=== PATIENT | female | born 1990 | race Caucasian/White ===

== ENCOUNTER 2018-05-18 12:27 | Observation (INO) | payer OTHER ==
--- NOTE | 2018-05-18 14:20 | EDPHY ---
General Time Seen by Provider: 05/18/18 14:00 Narrative: CLINICAL IMPRESSION: Flank pain ASSESSMENT/PLAN: Patient is a 27-year-old female with significant history of IgA and C1q nephropathy, antiphospholipid antibody syndrome on Coumadin, Fadia's and hypertension who presents to the emergency department with persistent and escalating bilateral flank pain, abdominal distention, nausea and bilateral upper extremity edema. Patient is afebrile, she is uncomfortable appearing however not toxic-appearing. Her abdomen was distended, no appreciable tenderness to palpation or peritoneal signs. Bilateral CVA tenderness. Patient was seen and evaluated at [facility] Emergency Department earlier this morning, pertinent labs included a normal white blood cell count, creatinine of 1.4, BUN of 24, EGFR of 52 as well as a proteinuria. Renal ultrasound performed 2 days prior with no evidence of infarction, increased echogenicity consistent with chronic renal disease. Patient remotely followed by [facility], recently in [place] and is in the process of reestablishing care. I did speak with Dr. Garza with [facility], he recommends CT with contrast- concern for renal vein thrombosis, also recommends quantifying urine protein to rule out etiologies to include and nephrotic syndrome. CT abdomen and pelvis was obtained in the emergency department which revealed no evidence of nephrolithiasis, hydronephrosis, renal vascular thrombosis or other acute process. It is unclear the exact etiology of her bilateral flank pain at this time. Patient was given IV fluids, antiemetic and her pain was controlled. The patient will be admitted to the hospitalist service for further evaluation and management, I spoke directly with Dr. Blount who will be the admitting physician. In reviewing patient's records, she was seen and evaluated on the in the emergency department and again on the at [facility]. CBC revealed no evidence of leukocytosis at her visit earlier today, creatinine was 1.4, BUN 20 for an estimated GFR 52. This was improved from creatinine of 1.52 days prior. INR is therapeutic at 2.3. I called patient's primary care provider and discuss this case with her. She was seen by her on Friday with concerns for nephrotic syndrome however with improving creatinine and decreased protein urea her primary care did not start any steroid therapy. Patient presents complaining of persistent and uncontrolled bilateral flank pain as well as underlying nausea. Symptoms are the same and unchanged. Patient was diagnosed oxycodone and Lyrica from her visit earlier this morning. Patient reportedly spoke to her primary care provider who referred her to go to another emergency department however when speaking to her PCP she did not recommend this. I spoke with Dr. Russell who was patient's armature winder repairer over 4 years ago, he is familiar with this patient however has not seen her recently. Biggest concern is it renal vein thrombosis, recommended imaging at this time. Also recommends quantifying the urine protein to help differentiate possible nephrotic syndrome. DIFFERENTIAL DX: Nephrotic syndrome, renal colic, pyelonephritis, UTI, renal vein thrombosis ED COURSE: 14:05: Discussed with Dr. Mera CHIEF COMPLAINT: Bilateral flank pain HPI: Patient is a 27-year-old female with a significant history of IgA in C1q nephropathy, antiphospholipid antibody syndrome on Coumadin, Fadia's and hypertension who presents to the emergency department with bilateral flank pain , abdominal distention, nausea and bilateral upper extremity edema. Patient reports last week she started to experience some bilateral flank pain, right greater than left. She was seen and evaluated by her primary care provider on Friday where a UA was obtained and revealed hematuria and protein urea. Patient was seen and evaluated formally in the emergency department on Friday with a reassuring workup including normal ultrasound, creatinine of 1.5, no other acute findings. Patient seen and evaluated again for escalating pain this morning at [facility] were laboratory studies were obtained, another reassuring workup. Patient called her PCP and reportedly was told to go to another emergency department. Patient denies any fevers or chills, she has had low- grade nausea with no vomiting. She denies any chest pain or abdominal pain. She denies any urinary symptoms to include dysuria, hematuria or frequency. Bowel movements have been regular, no melena or hematochezia. Patient denies chronic pain with underlying nephropathy. PMH: IgA/C1q nephropathy, antiphospholipid antibody syndrome, Fadia's, hypertension Pertinent Past Surgical History: Denies Family History: Noncontributory Social History: Denies REVIEW OF SYSTEMS: All other systems negative Constitutional: Decreased appetite. No fever, no chills. Eyes: No discharge, vision change ENT: No sore throat, congestion, ear pain. Cardiovascular: No chest pain, no palpitations. Respiratory: No cough. Gastrointestinal: Abdominal distention, nausea. No abdominal pain or diarrhea. Genitourinary: Decreased urine output. No hematuria, dysuria or pelvic pain. Musculoskeletal: Symmetric hand swelling. No back pain, joint pain, myalgias. Skin: No rashes, color change. Neurological: No headache, dizziness, weakness. PHYSICAL EXAM: General Appearance: Patient is a well-developed female, uncomfortable appearing however not toxic-appearing. HENT: Normocephalic, atraumatic. Bilateral external ears are normal. Bilateral tympanic membranes are normal with pearly [place] reflex. Nares are clear, mucosa is pink. Oropharynx is clear however mildly dry mucosa, uvula is midline. There is no tonsillar enlargement or exudate. The dentition is normal. Eyes: PERRLA, no acute vision change, nystagmus, swelling, discharge, pain or photosensitivity. Conjunctiva pink, no pallor or injection Neck: Supple, nontender, no lymphadenopathy, no midline pain, FROM, no meningismus. Respiratory: There are no retractions, lungs are clear to auscultation. Cardiac: Regular rate and rhythm, no murmurs or gallops. Gastrointestinal: Abdomen is soft, nontender, bowel sounds normal, no masses/ hernia, no rigidity, guarding or focal peritoneal findings. Bilateral CVA tenderness on examination. Neurological: Alert and oriented x 3, CN 2-12 grossly intact, normal gait no ataxia, DTR's intact, normal sensation and strength Skin: Warm, dry, no rashes, no nodules on palpation. Musculoskeletal: Mild symmetric hand swelling, nontender. No lower extremity edema. Extremities are symmetrical, full range of motion, no tenderness, deformity or erythema. Psychiatric: Patient is oriented X 3, there is no agitation. MEDICAL DECISION MAKING: Patient was seen independently. Secondary supervising physician at time of evaluation was Dr. Mera. Diagnosis: Bilateral flank pain. New, requires workup Summary: See Assessment and Plan for summary of ED visit Clinical lab tests: ordered / reviewed. Independent visualization of images, tracing, or specimens: Yes. Decision to obtain medical records or history from someone other than the patient: Yes, PCP and armature winder repairer Review / Summarize previous medical records: Yes Discussed patient with another provider: Yes- Dr. Nieto, Dr. Garza, Dr. Mera and Dr. Blount Patient Progress: Stable, admit. - Diagnostics Imaging Results: Imaging Impressions Abdomen CT 05/18/18 15:15 Impression: 1. Normal enhancement to both kidneys without evidence for hydronephrosis or nephrolithiasis. 2. Chronic bilateral spondylolysis at L5 with mild grade 1 anterior spondylolisthesis of L5 on S1. 3. Moderate constipation. Results called and discussed with Treasure Farrell PA-C on 05/18/2018, 17:01. - History Smoking Status: Never smoked - Objective Vital Signs: Initial Vital Signs Temperature (C) 36.8 C 05/18/18 12:36 Heart Rate 81 05/18/18 12:36 Respiratory Rate 18 05/18/18 12:36 Blood Pressure 154/104 H 05/18/18 12:36 O2 Sat (%) 100 05/18/18 12:36 O2 Delivery Mode Room Air Allergies/Adverse Reactions: droperidol [Droperidol] Allergy (Verified 05/18/18 16:00) SHORTNESS OF BREATH Home Medications: Medication Instructions Recorded Furosemide [Furosemide] 20 mg PO DAILY 05/18/18 HYDROcodone/APAP 10/325 [[place] 1 tab PO Q6 PRN 05/18/18 10/325 (*)] Losartan Potassium [Cozaar 25 mg 25 mg PO DAILY 05/18/18 (*)] Ondansetron HCl [Ondansetron HCl] 4 mg PO Q6H PRN 05/18/18 Warfarin Sodium [Coumadin] 10 mg PO DAILY 05/18/18 amLODIPine BESYLATE [Amlodipine 5 mg PO DAILY 05/18/18 Besylate] Laboratory Results: 05/18/18 05/18/18 12:40 12:40 Urine Color YELLOW Urine Appearance CLEAR Urine pH 6.0 (5.0-7.5) Ur Specific [place] 1.014 (1.002-1.030) Urine Protein 1+ H (NEGATIVE) Urine Ketones NEGATIVE (NEGATIVE) Urine Blood NEGATIVE (NEGATIVE) Urine Nitrate NEGATIVE (NEGATIVE) Urine Bilirubin NEGATIVE (NEGATIVE) Urine Urobilinogen NEGATIVE EU EU (0.2-1.0) Ur Leukocyte Esterase NEGATIVE (NEGATIVE) Urine RBC 1-3 /hpf /hpf (0-3) Urine WBC 1-3 /hpf /hpf (0-3) Ur Epithelial Cells 1+ /lpf /lpf (NONE-1+) Urine Bacteria TRACE /hpf H /hpf (NONE SEEN) Urine Glucose NEGATIVE (NEGATIVE) Urine Test NEGATIVE Medications Given: Hydromorphone HCl (Dilaudid) 0.2 - 0.4 mg IVP Q4HRS PRN PRN Reason: Pain, Severe Unable to Take PO Stop: 05/28/18 15:52 Last Admin: 05/18/18 16:28 Dose: 0.4 mg Discontinued Medications Hydromorphone HCl (Dilaudid) 0.5 mg IVP EDNOW ONE Stop: 05/18/18 15:05 Last Admin: 05/18/18 15:32 Dose: 0.5 mg Ondansetron HCl (Zofran) 4 mg IVP Q4 PRN PRN Reason: Nausea/Vomiting, Can't Take PO Stop: 11/14/18 14:41 Last Admin: 05/18/18 15:32 Dose: 4 mg Departure - Departure Disposition: [facility] Acute Condition: Fair
[2018-05-18] MEDS ORDERED: HYDROmorphONE/DILAUDID 2 MG/ML INJ IVP ONE ×2 (14:42→15:04)
[2018-05-18] MEDS ORDERED: ONDANSETRON 4 MG/2 ML VIAL IVP PRN (14:42)
[2018-05-18] MEDS ORDERED: HYDROmorphONE/DILAUDID 1 MG/ML INJ ONE (15:29)
[2018-05-18] MEDS ORDERED: ACETAMINOPHEN 325 MG TAB PO PRN (15:53)
[2018-05-18] MEDS ORDERED: HYDROmorphONE/DILAUDID 1 MG/ML INJ IVP PRN (15:53)
[2018-05-18] MEDS ORDERED: IOPAMIDOL (ISOVUE 370) 100 ML BTL IV ONE (15:56)
[2018-05-18] MEDS ORDERED: HYDROCODONE/APAP 10/325 TAB PO PRN (16:01)
--- NOTE | 2018-05-18 16:34 | GHP ---
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 She presents with several days of flank pain. 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 She presents to this hospital today after b eing seen in the ER on the and on the at Urgent Care. She has bilateral flank pain. This feels somewhat similar to her previous episodes of kidney pain. She has never had abdominal surgery. No history of nephrolithiasis. She has had 2 previous pregnancies. She has not had fever, chills, although she has felt kind of uncomfortable. She has been eating all right. She continues to take her Lasix. She has noticed a decreased urine output. She has been seen recently and her creatinine is in the 1.4 to 1.5 range. Her INR is therapeutic at 2.3 this morning. She has had no abdominal surgery. There has been no physical activity that would have led to a muscle strain in that area. REVIEW OF SYSTEMS: Complete 10-point review of systems conducted negative except as noted in the HPI . PAST MEDICAL HISTORY: 1. IgA nephropathy. 2. C1 Q nephropathy. 3. Antiphospholipid antibody syndrome. 4. Hypertension. ALLERGIES: Droperidol. HOME MEDS: Amlodipine, furosemide, [place], losartan, warfarin, ondansetron. SOCIAL HISTORY: She works as a nurse. She has 2 children. She lives in [place]. She is a nonsmok er. Social alcohol. FAMILY HISTORY: Reviewed and unremarkable. PHYSICAL EXAMINATION: VITAL SIGNS: Presenting vitals blood pressure 154/103, now 131/113, pulse 79, breathing 16 times a minute, 98% on room air. GENERAL: Slightly uncomfortable but otherwise no acute distress. HEENT: Sclerae anicteric. Oropharynx clear. Mucous membranes moist. NECK: Supple. No l ymphadenopathy or JVD. LUNGS: Clear to auscultation bilaterally. HEART: S1, S2. There is some flank pain. There is no rebound or guarding. LOWER EXTREMITIES: Without edema. Calves nontender. SKIN: Wi thout rash. NEUROLOGIC: Exam is nonfocal. LABS: Today show a UA with 1+ protein, otherwise negative, trace bacteria. Previous labs were a cre atinine of 1.52 today. She had a D-dimer about 10 days ago that was negative here. About 10 days ag o her white count was 8.8, hematocrit 43, platelets are 247. These labs were before her symptoms sta rted on the , which was 3 days ago. Sodium 135, potassium 3.8, chloride 104, bicarb 26, BUN 30, creatinine 1.6, glucose 88. I discussed the case with FRACISCO Church in the emergency department. ASSESSMENT/PLAN: A 27-year-old female with complex renal history and bilateral flank plain. 1. Flank pain. This is certainly concerning for possible a nephrolith or renal artery thrombosis, a lthough therapeutic INR and recently negative D-dimer makes this less likely. She has had no blood i n her urine. We will do a CT with and without contrast to evaluate for nephrolithiasis and stones. 2. She had a negative test several days ago. I will repeat that. We will follow up on results. 3. History of nephrotic syndrome. Her news internship is interested in possible nephrotic syndrome, ca n put her in for 24 hour urine collection, although she is admitted to observation as I suspect and g oing to be difficult to accomplish. 4. Hypertension. The patient has hypertension, stable. Continue amlodipine and losartan. 5. Volume status. The patient is probably slightly volume deplete. Will follow. I will give her 2 L IV fluids at a gentle rate. 6. Pain. We will continue her pain pills, give her some IV Dilaudid. She is not drug-seeking. 7. Prophylaxis. Therapeutic INR. Follow. DISPOSITION: Observation status for now. /[id number]/MODL
[2018-05-18] MEDS: PROMETHAZINE HCL 25 MG/ML INJ IVP PRN (18:00)
[2018-05-18] MEDS: NS 1,000 ML IV SCH (18:05)
[2018-05-18] MEDS: HYDROmorphONE/DILAUDID 1 MG/ML INJ IVP PRN ×2 (20:18→22:47)
[2018-05-18] MEDS: ONDANSETRON 4 MG/2 ML VIAL IVP PRN (22:47)
[2018-05-19] MEDS: HYDROCODONE/APAP 10/325 TAB PO PRN ×4 (00:08→19:54)
[2018-05-19] MEDS: NS 1,000 ML IV SCH (00:08)
[2018-05-19] MEDS: HYDROmorphONE/DILAUDID 1 MG/ML INJ IVP PRN ×7 (01:06→21:32)
[2018-05-19] MEDS: PROMETHAZINE HCL 25 MG/ML INJ IVP PRN ×2 (03:20→12:46)
[2018-05-19 05:25] LABS: INR 2.76 (0.83-1.16); PROTIME(PATIENT) 29.1 SEC (12.0-15.0)
[2018-05-19] MEDS: ONDANSETRON 4 MG/2 ML VIAL IVP PRN ×2 (06:37→10:49)
[2018-05-19] MEDS: LOSARTAN POTASSIUM 25 MG TAB PO SCH (08:57)
[2018-05-19] MEDS: amLODIPine BESYLATE 5 MG TAB PO SCH (08:57)
[2018-05-19] MEDS ORDERED: POLYETHYLENE GLYCOL 3350 17 GM PKT PO PRN (09:22)
[2018-05-19] MEDS ORDERED: BISACODYL 10 MG SUPP PR PRN (09:22)
[2018-05-19] MEDS ORDERED: LACTULOSE 20 GM/30 ML UDCUP PO PRN (09:22)
[2018-05-19] MEDS ORDERED: MAGNESIUM HYDROXIDE 30 ML UDCUP PO PRN (09:22)
--- NOTE | 2018-05-19 09:41 | HOSPPROG ---
Hospitalist Progress Note Assessment/Plan: B/L flank pain - CT neg for thrombotic dz or hydronephrosis, constipation noted (pt denies this) -pain control CKD with H/O nephrotic syndrome / IgA nephropathy - Cr near baseline ~1.3. Note 1+ pro on UA -nephrology consult, discussed with Dr. Mcbride, who recommends starting with spot pro:Cr ratio prior to 24 urine APLA syndrome - INR therapeutic on coumadin, pt notes h/o clotting despite INR 2 -3 UE swelling - check b/l UE u/s to r/o DVT given above Hypertension - adequate control -cont norvasc, losartan Constipation - seen on CT, pt denies hx -bowel regimen Full code Dispo - heck to inpt for further evaluation of pain and swelling Subjective: Pt reports 6/10 b/l flank pain and b/l UE and facial swelling and puffiness. Reports regular soft formed stool, denies constipation hx. No fevers /chills. Poor uop per her report. Objective: Vital Signs Temp Pulse Resp BP Pulse Ox 36.8 C 77 16 111/85 H 100 05/19/18 08:12 05/19/18 08:12 05/19/18 08:12 05/19/18 08:57 05/19/18 08:12 Laboratory Results 05/19/18 04:30 05/18/18 05/19/18 05/20/18 05:59 05:59 05:59 Intake Total 400 1500 Balance 400 1500 PT 29.1 SEC (12.0-15.0) H 05/19/18 04:30 INR 2.76 (0.83-1.16) H 05/19/18 04:30 - Physical Exam Constitutional: no apparent distress Eyes: PERRL Ears, Nose, Mouth, Throat: moist mucous membranes Cardiovascular: regular rate and rhythym Respiratory: no respiratory distress, clear to auscultation, reduced air movement Gastrointestinal: other (soft, minimal distention, nontender, +BS) Skin: warm Musculoskeletal: full muscle strength, other (RUE > LUE swelling noted) Neurologic: AAOx3 Psychiatric: interacting appropriately ICD10 Worksheet Patient Problems: Problems Problem Status Onset Flank pain Acute Pain, flank, bilateral Acute - ICD10 Problem Qualifiers (1) Flank pain (2) Pain, flank, bilateral
--- NOTE | 2018-05-19 12:22 | PDCONSULT ---
Drug Abuse Program Coordinator Note: Renal Consult Note CC: Flank pain HPI: The patient is a 27 y/o F with a known h/o IgA nephropathy, C1q nephropathy , and antiphoslolipid Ab syndrome on anticoagulation with a previous renal artery thrombosis who presented to the ED c/o flank pain. She is followed by Dr. Stout of [facility] and has a baseline Cr of 1.4-1.5 as well as a h/o proteinuria. She states, that she has been treated for this issue since she was 15, however did not develop a clot until last December. She states that her pain began on Friday while "just sitting around" and she cannot think of any relieving factors, however it is exacerbated by movement. She was started on lasix just this past year to help with her elevated BP's and she was started on a CCB for her Raynaud's syndrome. She admits to having severe low back pain in the past and had a previously ruptured disc that was removed >1 year ago. 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 She is tearful, b/ c she feels that her pain is similar to her kidney pain in the past. 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 Meds: List reviewed. Allergies: Droperidol. ROS: Negative 10 point review except as per HPI. Objective: Temp Pulse Resp BP Pulse Ox 36.6 C 65 16 149/114 H 97 05/19/18 11:05 05/19/18 11:05 05/19/18 11:05 05/19/18 11:05 05/19/18 11:05 Physical Exam: GEN: Alert and oriented, mild distress HEENT: MMM, EOMI Neck: No thyromegaly, supple CV: RRR, no murmurs RESP: CTA b/l, no wheezing or rales ABD: Soft, NT, ND, increased paraspinal muscle tenderness on L side with tenderness to palpation L5 transverse process EXT: Trace edema SKIN: No rashes or lesions NEURO: Non-focal Labs: PT 29.1 SEC (12.0-15.0) H 05/19/18 04:30 INR 2.76 (0.83-1.16) H 05/19/18 04:30 Sodium 135 mEq/L (135-145) 05/19/18 04:30 Potassium 3.9 mEq/L (3.5-5.2) 05/19/18 04:30 Chloride 109 mEq/L (97-110) 05/19/18 04:30 Carbon Dioxide 25 mEq/l (22-31) 05/19/18 04:30 Anion Gap 1 mEq/L (6-14) L 05/19/18 04:30 BUN 20 mg/dL (7-23) 05/19/18 04:30 Creatinine 1.4 mg/dL (0.6-1.0) H 05/19/18 04:30 Estimated GFR 45 05/19/18 04:30 Glucose 99 mg/dL (70-100) 05/19/18 04:30 Calcium 7.8 mg/dL (8.5-10.4) L 05/19/18 04:30 Urine Color YELLOW 05/18/18 12:40 Urine Appearance CLEAR 05/18/18 12:40 Urine pH 6.0 (5.0-7.5) 05/18/18 12:40 Ur Specific [place] 1.014 (1.002-1.030) 05/18/18 12:40 Urine Protein 1+ (NEGATIVE) H 05/18/18 12:40 Urine Ketones NEGATIVE (NEGATIVE) 05/18/18 12:40 Urine Blood NEGATIVE (NEGATIVE) 05/18/18 12:40 Urine Nitrate NEGATIVE (NEGATIVE) 05/18/18 12:40 Urine Bilirubin NEGATIVE (NEGATIVE) 05/18/18 12:40 Urine Urobilinogen NEGATIVE EU (0.2-1.0) 05/18/18 12:40 Ur Leukocyte Esterase NEGATIVE (NEGATIVE) 05/18/18 12:40 Urine RBC 1-3 /hpf (0-3) 05/18/18 12:40 Urine WBC 1-3 /hpf (0-3) 05/18/18 12:40 Ur Epithelial Cells 1+ /lpf (NONE-1+) 05/18/18 12:40 Urine Bacteria TRACE /hpf (NONE SEEN) H 05/18/18 12:40 Urine Glucose NEGATIVE (NEGATIVE) 05/18/18 12:40 Urine Test NEGATIVE 05/18/18 12:40 Imaging: CT ABD/Pelvis w/ contrast results reviewed. A/P: 27 y/o F with a known h/o IgA/C1Q nephropathy and APLA syndrome who presented with flank pain. UA on 05/18 negative for blood and shows 1+ proteinuria with trace bacteria. Etiology unclear and given Cr at baseline less likely arterial thrombosis and may be UTI vs musculoskeletal pain especially given h/o spinal issues. -sent spot Pr:Cr for degree of proteinuria, would do 24h as outpt -s/p fluids and now back on lasix -sent urine culture -pain control per primary team, would avoid NSAIDs -continue home meds for HTN -continue anticoagulation, will hold on arterial studies (MRA vs arteriogram) at this time and may be done if clinical change -would discharge with nephrology f/u as outpatient (has appointment with Raoul Stout tomorrow) Consult appreciated, please contact if further ?'s. #[phone]. Kyle Peterson, DO [facility]
--- NOTE | 2018-05-19 15:17 | ASMTCMCOM ---
CM Note CM Note Notes: Pt is a 27 yo F, presents with flank pain, protein urea, and has history of IgA/CIq Neuropathy. Pt has two kids and lives with spouse. No therapies ordered, pt will likely discharge independently. CM available if needs arise. Plan: Independent Date Signed: 05/19/2018 03:17 PM Electronically Signed By:ARMANI Ferguson
[2018-05-19] MEDS ORDERED: WARFARIN SODIUM 5 MG TAB PO SCH (16:00)
[2018-05-19] MEDS: ONDANSETRON DISINTEGRATING 4 MG TAB PO PRN ×2 (17:50→21:32)
[2018-05-19] MEDS: SENNOSIDES/DOCUSATE SODIUM TAB PO SCH (20:01)
[2018-05-20] MEDS: HYDROCODONE/APAP 10/325 TAB PO PRN ×2 (04:59→09:23)
[2018-05-20 05:09] VITALS: BP 130/94
[2018-05-20 05:48] LABS: INR 2.66 (0.83-1.16); PROTIME(PATIENT) 28.3 SEC (12.0-15.0)
[2018-05-20] MEDS: HYDROmorphONE/DILAUDID 1 MG/ML INJ IVP PRN (05:51)
[2018-05-20 08:11] LABS: PLATELET COUNT 148 10^3/uL (150-400)
[2018-05-20] MEDS: amLODIPine BESYLATE 5 MG TAB PO SCH (08:28)
[2018-05-20] MEDS: LOSARTAN POTASSIUM 25 MG TAB PO SCH (08:29)
[2018-05-20] MEDS: SENNOSIDES/DOCUSATE SODIUM TAB PO SCH (08:29)
--- NOTE | 2018-05-20 08:36 | SOAPPROG ---
SOAP Progress Note Assessment/Plan: Assessment: CKD 3 , creat at baseline, Follows with [facility] nephrology, seeing them soon after dismissal back pain overall better, but still some pain HTN, BP reasonable considering pain, continue current meds IgA nephropathy, stable APA syndrome, no renal thrombosis, INR is therapeutic Plan: pain control close follow up with primary Nephrology team at [facility] renal signing off 05/20/18 08:32 Subjective: still with some back pain but overall better no cp sob nausea vomiting or anorexia spirits good wants to go home Objective: Vital Signs Temp Pulse Resp BP Pulse Ox 36.8 C 65 12 130/94 H 98 05/20/18 05:07 05/20/18 05:07 05/20/18 05:07 05/20/18 08:29 05/20/18 05:07 Laboratory Results 05/20/18 05:00 05/19/18 04:30 05/19/18 05/20/18 05/21/18 05:59 05:59 05:59 Intake Total 400 2600 Output Total 450 Balance 400 2150 PT 28.3 SEC (12.0-15.0) H 05/20/18 04:45 INR 2.66 (0.83-1.16) H 05/20/18 04:45 Physical Exam - Physical Exam General Appearance: alert Neck: normal inspection Respiratory: No rales, No rhonchi, No wheezing Cardiac/Chest: regular rate, rhythm, No edema, No friction rub Abdomen: normal bowel sounds, non-tender, soft Extremities: No swelling Neuro/Psych: alert, normal mood/affect, oriented x 3 ICD10 Worksheet Patient Problems: Problems Problem Status Onset Flank pain Acute Pain, flank, bilateral Acute
--- NOTE | 2018-05-20 09:19 | ASDISCHSUM ---
Discharge Information Plan Status:Home with No Needs Medically Cleared to Leave: Discharge Date: CM D/C Disposition:Home, Routine, Self-Care ADT D/C Disposition:Home, Routine, Self-Care Projected Discharge Date: Transportation at D/C:Family Discharge Delay Reason: Follow-Up Date: Discharge Slot: Final Diagnosis: Placement Information Patient Contact Information Contact Name:SEKOU Relationship:Other Address: Work Phone: City: [facility] Phone: State/Synchrony Code: Email: Financial Information Financial Class:HMO and PPO Plans Primary Plan Desc:[facility] Primary Plan Number:[id number] Secondary Plan Desc: Secondary Plan Number: Assessment Information LACE LACE Length of stay for Answers: 1 day current admission Comorbidities - select Answers: Mild liver or renal all that apply disease Other Notes: IgA nephropathy; Fadia' s; HTN # of Emergency department Answers: 1-2 visits in the last 6 months Score: 5 Date Signed: 05/20/2018 09:17 AM Electronically Signed By:ARMANI Ferguson [facility] CM Progress Note CM Note CM Note Notes: Pt is a 27 yo F, presents with flank pain, protein urea, and has history of IgA/CIq Neuropathy. Pt has two kids and lives with spouse. No therapies ordered, pt will likely discharge independently. CM available if needs arise. Plan: Independent Date Signed: 05/19/2018 03:17 PM Electronically Signed By:ARMANI Ferguson Case Management Discharge Plan Note Case Management Discharge Discharge Order Complete? Answers: Yes Discharge Comments Notes: Pt being discharged independently. Lives with family. No other CM needs identified. Date Signed: 05/20/2018 09:19 AM Electronically Signed By:ARMANI Ferguson Intervention Information
--- NOTE | 2018-05-21 06:38 | GDS ---
DISCHARGE DIAGNOSES: 1. Bilateral flank pain, improved. 2. Chronic kidney disease, secondary to IgA nephropathy and C1Q nephropathy. 3. Antiphospholipid antibody syndrome. 4. Chronic anticoagulation. 5. Hypertension. CONSULTANTS: Kyle Peterson DO, nephrology. IMAGING STUDIES/PROCEDURES: 1. Abdomen and pelvis CT, May 18, 2018, showed normal enhancement of both kidneys with no eviden ce of hydronephrosis or nephrolithiasis, chronic bilateral spondylolysis at L5 with mild grade 1 ante rior spondylolisthesis of L5 on S1, as well as moderate constipation. 2. Bilateral upper extremity ultrasound was negative for DVT. HISTORY: For details, please see History and Physical dated May 18, 2018. In brief, Ms. Liane gutierrez is a 27-year-old female with a history of chronic kidney disease, with a baseline creatinine of 1. 4-1.5, as well as antiphospholipid antibody syndrome, hypertension, and chronic anticoagulation, who presented to the hospital with bilateral flank pain. She notes in the past there has been suspicion for renal infarcts due to thrombosis. She was concerned her flank pain was indicative of potential c lotting issue, and she was admitted to the hospital for further evaluation. HOSPITAL COURSE: Patient admitted to the med/surg unit. CT scan was performed and showed no evidenc e of renal artery thrombosis, nephrolithiasis, or hydronephrosis. She did have a therapeutic INR as well as a recently negative D-dimer. There was no evidence of hematuria. A spot protein creatinine ratio was not suggestive of ongoing nephrotic syndrome. She also complained of bilateral upper extre mity swelling, and this was evaluated with upper extremity ultrasound, which was negative for DVT. R enal consult was obtained. It was not felt that her symptoms were related to worsening renal process or thrombosis. She did not feel her symptoms were consistent with her previous back pain issues. I t is recommended she have close outpatient followup with her loss prevention associate at the [facility], and she also has an appointment with Rheumatology today. DISPOSITION: Patient is discharged home in stable condition. FOLLOWUP: 1. Rheumatology, [facility]. 2. Nephrology, [facility]. 3. Angelica Nieto DO, primary care. DISCHARGE MEDICATIONS: Please see [facility] completed outpatient medication list. There are no new m edications on discharge. She will continue her Norvasc 5 mg p.o. daily, Coumadin 10 mg p.o. daily, l osartan 25 mg p.o. daily, Lasix 20 mg p.o. daily, Zofran 4 mg p.o. q.4 hours p.r.n., and Dema 10/325 1 p.o. q.6 hours p.r.n. as previously prescribed. /[id number]/MODL
== END 2018-05-20 10:07 | disposition home or self-care (01) ==
LOC: F1N 17:27
PROVIDERS: ADMIT Internal Medicine; ATTEND Hospitalist
DX: R10.9 Unspecified abdominal pain (principal); N18.9 Chronic kidney disease, unspecified; K59.00 Constipation, unspecified; R60.9 Edema, unspecified; I12.9 Hypertensive chronic kidney disease with stage 1 through stage 4 chronic kidney disease, or unspecified chronic kidney disease; D68.61 Antiphospholipid syndrome; M43.17 Spondylolisthesis, lumbosacral region; Z79.01 Long term (current) use of anticoagulants
CPT/HCPCS: 74177; 93970; 96361; 96374; 96375; 96376; 99285; G0378; J1170; J2405; J2550; Q9967